=== PATIENT | female | born 1940 | race Caucasian/White ===

== ENCOUNTER 2020-08-07 09:42 | Outpatient (CLI) | payer MEDICARE | END 2020-08-07 09:43 | disposition home or self-care (01) | LOC: CSHMAMMO 09:42 | PROVIDERS: ATTEND Internal Medicine | DX: Z12.31 Encounter for screening mammogram for malignant neoplasm of breast (principal); Z78.0 Asymptomatic menopausal state; M85.80 Other specified disorders of bone density and structure, unspecified site | CPT/HCPCS: 77063; 77067; 77080 ==

== ENCOUNTER 2021-08-10 09:32 | Outpatient (CLI) | payer MEDICARE | END 2021-08-10 09:33 | disposition home or self-care (01) | LOC: CSHMAMMO 09:32 | PROVIDERS: ATTEND Family Medicine | DX: Z12.31 Encounter for screening mammogram for malignant neoplasm of breast (principal) | CPT/HCPCS: 77063; 77067 ==

== ENCOUNTER 2022-08-05 06:54 | Day surgery (SDC) | payer MEDICARE ==
[2022-08-04 09:14] VITALS: BMI 31.5
[2022-08-05] MEDS ORDERED: PROPOFOL 20 ML ONE (09:51)
[2022-08-05] MEDS ORDERED: Lidocaine 2% MPF 10 ML AMP (For Epidural Use) ONE (09:51)
== END 2022-08-05 10:49 | disposition home or self-care (01) ==
LOC: CSHSDC 06:54
PROVIDERS: ATTEND Internal Medicine Gastroenterology
PROC: 0DJ08ZZ Inspection of Upper Intestinal Tract, Via Natural or Artificial Opening Endoscopic (ICD-10-PCS; principal; 2022-08-05)
DX: K44.9 Diaphragmatic hernia without obstruction or gangrene (principal); I10 Essential (primary) hypertension; F41.9 Anxiety disorder, unspecified; F32.A Depression, unspecified; E11.9 Type 2 diabetes mellitus without complications; E78.5 Hyperlipidemia, unspecified; G43.909 Migraine, unspecified, not intractable, without status migrainosus; Z85.028 Personal history of other malignant neoplasm of stomach; Z86.010 Personal history of colon polyps; Z88.5 Allergy status to narcotic agent; Z79.899 Other long term (current) drug therapy
CPT/HCPCS: J2704

== ENCOUNTER 2022-08-13 11:06 | Outpatient (CLI) | payer MEDICARE | END 2022-08-13 11:07 | disposition home or self-care (01) | LOC: CSHMAMMO 11:06 | PROVIDERS: ATTEND Family Medicine | DX: Z12.31 Encounter for screening mammogram for malignant neoplasm of breast (principal) | CPT/HCPCS: 77063; 77067 ==